=== PATIENT | female | born 1970 ===

== ENCOUNTER 2021-09-19 05:18 | Emergency (ER) | payer SELFPAY ==
[2021-09-19] MEDS ORDERED: Ketorolac Tromethamine 30 MG/ML VIAL ONE (05:56)
== END 2021-09-19 07:06 | disposition home or self-care (01) ==
LOC: ERS 05:18
DX: M54.50 Low back pain, unspecified (principal); X50.0XXA Overexertion from strenuous movement or load, initial encounter
CPT/HCPCS: 96372; 99283; J1885

== ENCOUNTER 2021-09-21 12:41 | Inpatient (IN) | payer OTHER, SELFPAY ==
[2021-09-21] MEDS ORDERED: Lorazepam 2 MG/ML VIAL ONE (13:05)
[2021-09-21] MEDS ORDERED: Morphine 4 MG/ML VIAL ONE ×2 (13:05→15:31)
[2021-09-21] MEDS ORDERED: Ondansetron PF 4 MG/2 ML Vial ONE (13:06)
[2021-09-21] MEDS ORDERED: Ketorolac Tromethamine 30 MG/ML VIAL ONE (13:06)
[2021-09-21 13:17] LABS: #Basophils 0.1 thou/uL (0.0-0.2); #Eosinphils 0.3 thou/uL (0.0-0.7); #Lymphocytes 2.7 thou/uL (1.20-3.40); #Monocytes 0.6 thou/uL (0.11-0.59); #Neutrophils 4.7 thou/uL (1.40-6.50); %Basophils 0.9 % (0.0-1.0); %Lymphocytes 32.4 % (21.0-51.0); %Monocytes 6.7 % (0.0-10.0); Hemoglobin 15.1 g/dL (12.0-16.0); Mean Corpuscular HGB CONC 32.4 g/dL (32.0-36.0); Mean Corpuscular Hemoglobin 29.6 pg (27.0-31.0); Mean Corpuscular Volume 91.4 fL (78.0-98.0); Platelet Count 248 thou/uL (130-400); RBC Distribution Width 12.3 % (11.5-14.5); White Blood Cell (WBC) Count 8.4 thou/uL (4.8-10.8)
[2021-09-21 13:22] LABS: BHCG - Serum Negative (NEGATIVE); Pregs Control Background? CLEAR/WHITE (CLR/WHITE); Pregs Control Bar Appear? YES (CONTROL BAR)
[2021-09-21 13:38] LABS: ALT (SGPT) 16 U/L (8-55); AST (SGOT) 22 U/L (5-34); Albumin 4.3 g/dL (3.5-5.0); Alkaline Phosphatase 73 U/L (40-110); Anion Gap 16 mmol/L (10-20); BUN (Urea Nitrogen) 12 mg/dL (7.0-18.7); Bilirubin, Total 0.8 mg/dL (0.2-1.2); CK (CPK) 244 U/L (29-168); Calc. Creatinine Clearance 0 mL/min (70-130); Carbon Dioxide 21 mmol/L (22-29); Chloride 107 mmol/L (98-107); Globulin 3.6 g/dL (2.4-3.5); Glucose 96 mg/dL (70-105); Lipase 25 U/L (8-78); Protein, Total 7.9 g/dL (6.0-8.3); Sodium 140 mmol/L (136-145)
[2021-09-21 14:14] LABS: Bilirubin Negative (Negative); Blood, Urine Negative (Negative); Clarity Clear (Clear); Glucose, Urine (Dipstick) Normal (Negative); Ketone, Urine Negative (Negative); Leukocyte Negative Leu/uL (Negative); Nitrite Negative (Negative); Protein, Urine (Dipstick) Negative (Neg-Trace); Specific Gravity, Urine 1.011 (1.002-1.036); Urobilinogen Normal mg/dL (Less than 2); pH, Urine 7.5 (5.0-9.0)
[2021-09-21] MEDS ORDERED: Ondansetron PF 4 MG/2 ML Vial IVP PRN (18:07)
[2021-09-21] MEDS ORDERED: Ondansetron ODT 4 MG TAB PO PRN (18:07)
[2021-09-21 18:09] VITALS: BMI 34.2
[2021-09-21] MEDS ORDERED: Senokot S 8.6-50 MG TAB PO PRN (18:32)
[2021-09-21] MEDS ORDERED: Acetaminophen 325 MG TAB PO PRN (18:32)
[2021-09-21] MEDS ORDERED: Bisacodyl 5 MG TAB PO PRN (18:32)
[2021-09-21] MEDS ORDERED: HYDROcodone/Acetaminophen 10/325 mg Tablet PO PRN (18:40)
[2021-09-21] MEDS ORDERED: HYDROcodone/Acetaminophen 5/325 mg Tablet PO PRN (18:40)
[2021-09-21] MEDS ORDERED: Melatonin 3 MG TAB PO PRN (18:40)
[2021-09-21] MEDS ORDERED: Aspirin Chewable 81 MG TAB PO SCH (18:44)
[2021-09-21] MEDS ORDERED: Enoxaparin Sodium 40 MG/0.4 ML SYRINGE SC SCH (18:45)
[2021-09-21] MEDS: Sodium Chloride 0.9% 1,000 ML IV SCH (19:39)
[2021-09-21 19:53] LABS: Troponin I Less than 0.010 ng/mL (< 0.028)
[2021-09-21] MEDS ORDERED: Pantoprazole 40 MG VIAL IVP SCH (20:00)
[2021-09-21] MEDS ORDERED: Ketorolac Tromethamine 30 MG/ML VIAL IVP PRN (20:25)
[2021-09-21] MEDS: Morphine 2 MG/ML VIAL SLOW IVP PRN (20:55)
[2021-09-22] MEDS: Morphine 2 MG/ML VIAL SLOW IVP PRN ×3 (03:15→15:02)
[2021-09-22 06:28] LABS: Eosinophils 5 % (0-10); Hemoglobin 13.8 g/dL (12.0-16.0); Lymphocytes 32 % (21-51); MDiff Complete? YES; Mean Corpuscular HGB CONC 32.9 g/dL (32.0-36.0); Mean Corpuscular Hemoglobin 31.4 pg (27.0-31.0); Mean Corpuscular Volume 95.5 fL (78.0-98.0); Monocytes 9 % (0-10); Neutrophil 54 % (42-75); Platelet Count 262 thou/uL (130-400); Platelet Morphology Comment Appears Adequate; RBC Distribution Width 12.7 % (11.5-14.5); RBC Morphology Normal; Red Blood Cell (RBC) Count 4.39 mill/uL (4.20-5.40); White Blood Cell (WBC) Count 6.6 thou/uL (4.8-10.8)
[2021-09-22 07:36] LABS: Albumin 3.6 g/dL (3.5-5.0)
[2021-09-22 07:37] LABS: Chloride 111 mmol/L (98-107); Potassium 4.2 mmol/L (3.5-5.1); Sodium 140 mmol/L (136-145)
[2021-09-22 07:38] LABS: Calcium 8.7 mg/dL (7.8-10.44)
[2021-09-22 07:39] LABS: Globulin 2.8 g/dL (2.4-3.5); Glucose 91 mg/dL (70-105); Protein, Total 6.4 g/dL (6.0-8.3)
[2021-09-22 07:40] LABS: Anion Gap 11 mmol/L (10-20); Carbon Dioxide 22 mmol/L (22-29)
[2021-09-22 07:41] LABS: Bilirubin, Total 0.6 mg/dL (0.2-1.2)
[2021-09-22 07:42] LABS: Alkaline Phosphatase 58 U/L (40-110); Calc. Creatinine Clearance 146 mL/min (70-130)
[2021-09-22 07:43] LABS: BUN (Urea Nitrogen) 14 mg/dL (7.0-18.7)
[2021-09-22 07:44] LABS: AST (SGOT) 15 U/L (5-34)
[2021-09-22 07:45] LABS: ALT (SGPT) 13 U/L (8-55)
[2021-09-22] MEDS: Sodium Chloride 0.9% 1,000 ML IV SCH (08:43)
[2021-09-22] MEDS ORDERED: Pantoprazole 40 MG VIAL IVP SCH (09:00)
[2021-09-22] MEDS ORDERED: Enoxaparin Sodium 40 MG/0.4 ML SYRINGE SC SCH (09:00)
[2021-09-22 11:27] LABS: SARS-CoV-2 PCR by NAA Not Detected (NotDetected)
[2021-09-22] MEDS: Cyclobenzaprine 10 MG TAB PO SCH ×2 (15:02→22:12)
[2021-09-22] MEDS: Ketorolac Tromethamine 30 MG/ML VIAL IVP PRN (22:18)
[2021-09-23] MEDS: Morphine 2 MG/ML VIAL SLOW IVP PRN (06:16)
[2021-09-23 06:58] LABS: CRP (Inflammatory) 0.61 mg/dL (= or < 0.5)
[2021-09-23] MEDS: Cyclobenzaprine 10 MG TAB PO SCH ×3 (08:16→21:37)
[2021-09-23] MEDS: Ketorolac Tromethamine 30 MG/ML VIAL IVP PRN (12:38)
[2021-09-23] MEDS ORDERED: ALPRAZolam 0.25 MG TAB PO PRN (12:51)
[2021-09-24] MEDS: Cyclobenzaprine 10 MG TAB PO SCH ×3 (08:21→22:18)
[2021-09-24] MEDS: Ibuprofen 600 MG TAB PO SCH ×3 (08:45→22:16)
[2021-09-25] MEDS: Ibuprofen 600 MG TAB PO SCH ×2 (05:15→08:32)
[2021-09-25 08:16] VITALS: BP 123/73; TEMP 97.5
[2021-09-25] MEDS: Cyclobenzaprine 10 MG TAB PO SCH (08:32)
[2021-09-25] MEDS ORDERED: Cyanocobalamin (Vitamin B-12) 1,000 MCG TAB PO SCH (09:00)
== END 2021-09-25 11:36 | disposition home or self-care (01) | DRG 552 ==
LOC: ERS 12:41 → T4-A 16:48 → OBSVTOIN 09-22 14:28
PROVIDERS: ADMIT Internal Medicine; ATTEND Internal Medicine
DX: M51.36 Other intervertebral disc degeneration, lumbar region (principal); Z20.822 Contact with and (suspected) exposure to COVID-19; M79.7 Fibromyalgia; M32.9 Systemic lupus erythematosus, unspecified; F40.240 Claustrophobia; R07.89 Other chest pain; Z88.6 Allergy status to analgesic agent; Z88.5 Allergy status to narcotic agent; Z88.0 Allergy status to penicillin; Z88.8 Allergy status to other drugs, medicaments and biological substances; Z98.51 Tubal ligation status; Z98.890 Other specified postprocedural states
CPT/HCPCS: 36415; 70551; 71045; 72131; 80053; 81003; 82550; 82607; 83690; 83880; 84443; 84484; 84703; 85025; 85379; 85652; 86140; 93005; 96374; 96375; 96376; J1885; J2060; J2270; J2405; J7050; U0003; U0005